=== PATIENT | female | born 1985 | race African-American/Black ===

== ENCOUNTER 2024-09-24 12:42 | Outpatient (CLI) | payer BC, SELFPAY ==
--- NOTE | 2024-09-24 13:20 | CRLHL7_ITS ---
For Patients: As a result of the Cures Act, medical imaging exams and procedure reports are released immediately into your electronic medical record. You may view this report before your referring provider. If you have questions, please contact your health care provider. BILATERAL DIGITAL SCREENING MAMMOGRAM WITH COMPUTER-AIDED DETECTION AND TOMOSYNTHESIS CLINICAL HISTORY: Routine screening exam. COMPARISON: None. TECHNIQUE: Digital mammogram in CC and MLO projections including computer-aided detection (CAD). Tomosynthesis was used in this interpretation. BREAST COMPOSITION: The breasts are heterogeneously dense, which may obscure small masses. FINDINGS: RIGHT Breast: No suspicious findings. LEFT Breast: Focal asymmetric density within the lateral breast 7 cm from the nipple CC view only. IMPRESSION: LEFT breast asymmetry/mass. RECOMMENDATIONS: Additional mammographic views of the LEFT breast including 3D spot compression CC and 3D true lateral. LEFT breast ultrasound may also be required. The [facility] will contact the patient. A lay language report of this examination will be provided to the patient. BI-RADS Category 0: Incomplete: Need Additional Imaging Evaluation Dictated by Leo Robins MD @ 09/25/2024 8:34:39 AM jj/Dictated by: Leo Robins MD @ 09/25/2024 8:34:00 AM (Electronically Signed)
== END 2024-09-24 12:43 | disposition home or self-care (01) ==
LOC: MAMMO 12:43
PROVIDERS: PCP Nurse Practitioner Family; Visit Provider Nurse Practitioner Family
DX: Z12.31 Encounter for screening mammogram for malignant neoplasm of breast (principal); N63.20 Unspecified lump in the left breast, unspecified quadrant; R92.333 Mammographic heterogeneous density, bilateral breasts
CPT/HCPCS: 77063; 77067

== ENCOUNTER 2024-10-08 10:38 | Outpatient (CLI) | payer BC, SELFPAY ==
--- NOTE | 2024-10-08 10:45 | CRLHL7_ITS ---
For Patients: As a result of the Cures Act, medical imaging exams and procedure reports are released immediately into your electronic medical record. You may view this report before your referring provider. If you have questions, please contact your health care provider. DIGITAL DIAGNOSTIC LEFT MAMMOGRAM USING TOMOSYNTHESIS AND COMPUTER-AIDED DETECTION LEFT BREAST ULTRASOUND CLINICAL HISTORY: LEFT breast mass/asymmetry. COMPARISON: 09/24/2024. TECHNIQUE: Digital LEFT mammogram in three projections with computer-aided detection on the true lateral and XCCL views. Tomosynthesis was used in this interpretation. Real-time ultrasound imaging of LEFT breast with imaging documentation. BREAST COMPOSITION: The breasts are heterogeneously dense, which may obscure small masses. FINDINGS: 3D true lateral, 3D XCCL and 3D CC spot compression LEFT breast mammogram images submitted. Decreased conspicuity of previously noted asymmetric density. No architectural distortion. No suspicious calcifications. No adenopathy. Targeted LEFT breast ultrasound performed. In the retroareolar space, there is a simple anechoic cyst measuring 12 x 6 x 12 millimeters. Dense fibroglandular tissue is present elsewhere including at 1 o`clock 7 cm from the nipple. No suspicious findings. IMPRESSION: No evidence of malignancy. Benign fibrocystic changes. RECOMMENDATIONS: Routine screening mammography. A lay language report of this examination will be provided to the patient. BI-RADS Category 2: Benign Dictated by Leo Robins MD @ 10/08/2024 11:58:25 AM jj/Dictated by: Leo Robins MD @ 10/08/2024 11:58:00 AM (Electronically Signed)
--- NOTE | 2024-10-08 11:15 | CRLHL7_ITS ---
For Patients: As a result of the Cures Act, medical imaging exams and procedure reports are released immediately into your electronic medical record. You may view this report before your referring provider. If you have questions, please contact your health care provider. SEE DIGITAL DIAGNOSTIC LEFT MAMMOGRAM PERFORMED SAME DAY CRL:merline rick/Dictated by: Leo Robins MD @ 10/08/2024 11:58:00 AM (Electronically Signed)
== END 2024-10-08 10:39 | disposition home or self-care (01) ==
LOC: MAMMO 10:38
PROVIDERS: PCP Nurse Practitioner Family; Visit Provider Nurse Practitioner Family
DX: N63.20 Unspecified lump in the left breast, unspecified quadrant (principal)
CPT/HCPCS: 76642; 77065; G0279

== ENCOUNTER 2024-10-12 09:53 | Outpatient (CLI) | payer BC, SELFPAY | END 2024-10-12 09:54 | disposition home or self-care (01) | PROVIDERS: PCP Nurse Practitioner Family; Visit Provider Nurse Practitioner Family | DX: R10.12 Left upper quadrant pain (principal) | CPT/HCPCS: 80053; 85025 ==